=== PATIENT | female | born 1965 | race Two or more races ===

== ENCOUNTER 2018-05-15 17:23 | Emergency (ER) | payer MEDICAID, OTHER ==
[~2018-05-15] VITALS: Ht 162.6 cm; Wt 63.5 kg
[2018-05-15 18:49] LABS: Basophils # (auto) 0 uL; Basophils % (auto) 0.7 % (0.0-2.0); Eosinophils # (auto) 0.2 uL; Eosinophils % (auto) 2.1 % (0.0-7.0); Hematocrit 39.7 % (36.0-46.0); Hemoglobin 13.2 g/dL (12.2-16.2); Lymphocytes # (auto) 1.6 uL; Lymphocytes % (auto) 22.7 % (10.0-50.0); Mean Corpuscular Hemoglobin 29.6 pg (28.0-32.0); Mean Corpuscular Hgb Conc. 33.2 g/dL (32.0-36.0); Mean Corpuscular Volume 89.1 fL (80.0-100.0); Monocytes # (auto) 0.4 uL; Monocytes % (auto) 5.4 % (0.0-12.0); Neutrophils % (auto) 69.1 % (37.0-80.0); Nucleated Red Blood Cells % 0.1 %; Platelet Count (auto) 220 10^3/uL (140-450); Red Blood Cells 4.45 10^6/uL (4.0-5.20); Red Cell Distribution Width 13.1 % (11.8-14.3); White Blood Cell 7.2 10^3/uL (4.4-10.8)
[2018-05-15 19:07] LABS: Albumin 3.4 g/dL (3.4-5.0); Anion Gap 8 (5-15); Blood Urea Nitrogen 9 mg/dL (7-18); Calcium 8.7 mg/dL (8.5-10.1); Carbon Dioxide 26 mmol/L (21-32); Chloride 97 mmol/L (98-107); Potassium 3.7 mmol/L (3.5-5.1); Sodium 131 mmol/L (136-145)
[2018-05-15 19:16] LABS: Alanine Aminotransferase 23 U/L (13-56); Alkaline Phosphatase 217 U/L (45-117); Aspartate Aminotransferase 12 U/L (15-37); BUN/Creatinine Ratio 8.7; Bilirubin, Total 0.3 mg/dL (0.2-1.0); GFR African American 71 mL/min; GFR Non-African American 59 mL/min
[2018-05-15 19:34] LABS: Glucose 539 mg/dL (74-106)
[2018-05-15 20:34] LABS: Urine Bacteria FEW /hpf (None Seen); Urine Blood Negative /uL (Negative); Urine WBC 25 /hpf (0 - 5)
[2018-05-15 20:42] LABS: INR 0.93 (0.9-1.15); Partial Thromboplastin Time 26.6 sec (23.78-33.04)
[2018-05-15 21:38] VITALS: BP 141/65
[2018-05-15] MEDS ORDERED: HYDROcodone-ACET 10/325MG TAB PO ONE (22:00)
[2018-05-15] MEDS ORDERED: InsuLIN REG 1unit/0.01ml Soln (100units/ml) IV ONE (22:00)
[2018-05-15] MEDS ORDERED: SODIUM CHLORIDE 0.9% 1,000 ML IV ONE (22:00)
[2018-05-15] MEDS ORDERED: cefTRIAXone SOD 1,000 MG VL ONE (23:26)
[2018-05-15] MEDS ORDERED: cefTRIAXone 1GM/50ML D5W 50 ML IV ONE (23:30)
== END 2018-05-15 23:30 | disposition home or self-care (01) ==
LOC: ER 17:23
DX: S00.03XA Contusion of scalp, initial encounter (principal); S16.1XXA Strain of muscle, fascia and tendon at neck level, initial encounter; S29.019A Strain of muscle and tendon of unspecified wall of thorax, initial encounter; S20.212A Contusion of left front wall of thorax, initial encounter; E11.65 Type 2 diabetes mellitus with hyperglycemia; I10 Essential (primary) hypertension; I25.2 Old myocardial infarction; V69.49XA Driver of heavy transport vehicle injured in collision with other motor vehicles in traffic accident, initial encounter; Y93.89 Activity, other specified; Y92.410 Unspecified street and highway as the place of occurrence of the external cause; Y99.8 Other external cause status
CPT/HCPCS: 36415; 70450; 71046; 72125; 72128; 80053; 80162; 81001; 82010; 82962; 83735; 83880; 84484; 85025; 85379; 85610; 85730; 93005; 94761; 96374; 96375; 99285; J0696; J1815; J7030

== ENCOUNTER 2022-02-20 14:18 | Inpatient (IN) | payer MEDICAID ==
[~2022-02-20] VITALS: Ht 157.5 cm; Wt 69.9 kg
[2022-02-20] MEDS ORDERED: IPRATROPIUM BROM 0.5 MG/2.5ML INH SOL NEB ONE (14:30)
[2022-02-20] MEDS ORDERED: ALBUTEROL SULF 2.5 MG/0.5ML(0.5%) NEB SOLN NEB ONE ×2 (14:30→16:30)
[2022-02-20 14:59] LABS: Basophils # (auto) 0 10 ^3/uL (0-0.2); Basophils % (auto) 0.5 % (0.0-2.0); Eosinophils # (auto) 0.1 10 ^3/uL (0-0.8); Eosinophils % (auto) 1.3 % (0.0-7.0); Hematocrit 39.4 % (36.0-46.0); Lymphocytes # (auto) 1.3 10 ^3/uL (0.4-5.4); Lymphocytes % (auto) 18.9 % (10.0-50.0); Mean Corpuscular Hemoglobin 30.2 pg (28.0-32.0); Mean Corpuscular Volume 91.4 fL (80.0-100.0); Monocytes # (auto) 0.4 10 ^3/uL (0-1.3); Monocytes % (auto) 5.4 % (0.0-12.0); Neutrophils # (auto) 5.1 10 ^3/uL (1.6-8.6); Neutrophils % (auto) 73.9 % (37.0-80.0); Red Blood Cells 4.31 10^6/uL (4.0-5.20); Red Cell Distribution Width 13.7 % (11.8-14.3); White Blood Cell 6.9 10^3/uL (4.4-10.8)
[2022-02-20 15:26] LABS: Albumin 3.6 g/dL (3.4-5.0); Calcium 9.8 mg/dL (8.5-10.1); Magnesium 2.6 mg/dL (1.6-2.6); Potassium 4.5 mmol/L (3.5-5.1)
[2022-02-20 15:28] LABS: Bilirubin, Total 0.4 mg/dL (0.2-1.0); Total Protein 6.9 g/dL (6.4-8.2)
[2022-02-20 15:46] LABS: INR 0.96 (0.9-1.15); Partial Thromboplastin Time 27.5 sec (24.6-33.4)
[2022-02-20] MEDS ORDERED: MAGNESIUM SULFATE 1GM/100ML 100 ML IV SCH (16:15)
[2022-02-20] MEDS ORDERED: SODIUM CHLORIDE 0.9% 1,000 ML IV ONE (16:15)
[2022-02-20] MEDS: MAGNESIUM SULFATE 1GM/100ML 100 ML IV SCH ×2 (16:55→17:47)
[2022-02-20] MEDS ORDERED: MORPHINE SULFATE INJ 2 MG/ml SYRG IV PRN (17:45)
[2022-02-20] MEDS ORDERED: NITROGLYCERIN 0.4 MG SL TAB SL PRN (17:45)
[2022-02-20] MEDS ORDERED: ASPirin 81 mg TAB PO ONE (18:00)
[2022-02-20] MEDS ORDERED: DEXTROSE (50%) 50ML SYRG IV PRN (18:00)
[2022-02-20] MEDS ORDERED: ATOR-47 PO (18:02)
[2022-02-20] MEDS ORDERED: MET25T PO (18:02)
[2022-02-20] MEDS ORDERED: TICA90TA PO (18:02)
[2022-02-20] MEDS ORDERED: hydrALAZINE HCL 20 MG/ML VL IV PRN (18:15)
[2022-02-20 18:32] LABS: Cholesterol 135 mg/dL (< 200); HDL Cholesterol 54 mg/dL (40-59); LDL Cholesterol 71 mg/dL (< 100); Triglycerides 224 mg/dL (< 150)
[2022-02-20 20:01] LABS: Amphetamine Screen, Urine NEGATIVE (NEGATIVE); Barbiturate Scree,Urine NEGATIVE (NEGATIVE); Benzodiazephine Screen, Urine NEGATIVE (NEGATIVE); Cannabinoid Screen, Urine NEGATIVE (NEGATIVE); Cocaine Screen, Urine NEGATIVE (NEGATIVE); Opiate Scree,Urine NEGATIVE (NEGATIVE); Phencyclidine Screen, Urine NEGATIVE (NEGATIVE)
[2022-02-20] MEDS: METOPROLOL TARTRATE 25 MG TAB PO SCH (22:30)
[2022-02-20] MEDS: ACCU-CHEK COMFORT CURVE STRIP VI SCH (22:30)
[2022-02-20] MEDS: TICAGRELOR 90 MG TAB PO SCH (22:30)
[2022-02-20] MEDS: InsuLIN REG 1unit/0.01ml Soln (100units/ml) SC SCH (22:37)
[2022-02-20] MEDS: INSULIN LANTUS (GLARGINE) 1 /0.01ml (100units/ml) SC SCH (22:38)
[2022-02-21 03:39] VITALS: BP 129/74
[2022-02-21 06:22] LABS: Basophils # (auto) 0 10 ^3/uL (0-0.2); Basophils % (auto) 0.4 % (0.0-2.0); Eosinophils # (auto) 0.2 10 ^3/uL (0-0.8); Eosinophils % (auto) 2.9 % (0.0-7.0); Hematocrit 39.4 % (36.0-46.0); Hemoglobin 13.1 g/dL (12.2-16.2); Lymphocytes # (auto) 1.7 10 ^3/uL (0.4-5.4); Lymphocytes % (auto) 23.9 % (10.0-50.0); Mean Corpuscular Hemoglobin 30.1 pg (28.0-32.0); Mean Corpuscular Hgb Conc. 33.2 g/dL (32.0-36.0); Mean Corpuscular Volume 90.7 fL (80.0-100.0); Monocytes # (auto) 0.5 10 ^3/uL (0-1.3); Monocytes % (auto) 7.4 % (0.0-12.0); Neutrophils # (auto) 4.6 10 ^3/uL (1.6-8.6); Neutrophils % (auto) 65.4 % (37.0-80.0); Nucleated Red Blood Cells % 0.1 %; Red Blood Cells 4.35 10^6/uL (4.0-5.20); Red Cell Distribution Width 13.5 % (11.8-14.3)
[2022-02-21 06:30] LABS: Calcium 9.2 mg/dL (8.5-10.1); Potassium 3.9 mmol/L (3.5-5.1)
[2022-02-21 06:35] LABS: Albumin 3.5 g/dL (3.4-5.0); BUN/Creatinine Ratio 12.1; Bilirubin, Total 0.6 mg/dL (0.2-1.0); Total Protein 6.9 g/dL (6.4-8.2)
[2022-02-21] MEDS: ACCU-CHEK COMFORT CURVE STRIP VI SCH ×4 (07:49→21:34)
[2022-02-21] MEDS: InsuLIN REG 1unit/0.01ml Soln (100units/ml) SC SCH ×4 (07:53→22:40)
[2022-02-21] MEDS: ENOXAPARIN SOD 40 MG/0.4 ML SYRINGE SC SCH (10:00)
[2022-02-21] MEDS: TICAGRELOR 90 MG TAB PO SCH ×2 (10:01→21:33)
[2022-02-21] MEDS: METOPROLOL TARTRATE 25 MG TAB PO SCH ×2 (10:01→21:33)
[2022-02-21 12:14] VITALS: BP 112/58
[2022-02-21] MEDS ORDERED: GABA300C10 PO (12:53)
[2022-02-21] MEDS ORDERED: INSU100I44 SC (12:53)
[2022-02-21] MEDS ORDERED: SACU1TAB PO (12:53)
[2022-02-21] MEDS ORDERED: FUR20T PO (12:53)
[2022-02-21] MEDS ORDERED: PANT40T PO (12:53)
[2022-02-21 13:00] VITALS: BP 115/62
[2022-02-21 17:00] VITALS: BP 130/77
[2022-02-21] MEDS: ALBUTEROL SULF 2.5 MG/0.5ML(0.5%) NEB SOLN NEB PRN (18:53)
[2022-02-21] MEDS: ATORVASTATIN 20 MG TAB PO SCH (21:34)
[2022-02-21 22:00] VITALS: BP 120/53
[2022-02-21] MEDS: INSULIN LANTUS (GLARGINE) 1 /0.01ml (100units/ml) SC SCH (22:41)
[2022-02-22 05:00] VITALS: BP 137/70
[2022-02-22] MEDS: ACCU-CHEK COMFORT CURVE STRIP VI SCH ×4 (05:56→22:20)
[2022-02-22] MEDS: InsuLIN REG 1unit/0.01ml Soln (100units/ml) SC SCH ×4 (06:01→22:51)
[2022-02-22 09:00] VITALS: BP 127/69
[2022-02-22] MEDS: TICAGRELOR 90 MG TAB PO SCH ×2 (09:13→21:27)
[2022-02-22] MEDS: METOPROLOL TARTRATE 25 MG TAB PO SCH ×2 (09:13→22:00)
[2022-02-22] MEDS: ENOXAPARIN SOD 40 MG/0.4 ML SYRINGE SC SCH (09:13)
[2022-02-22] MEDS: ALBUTEROL SULF 2.5 MG/0.5ML(0.5%) NEB SOLN NEB PRN (09:48)
[2022-02-22] MEDS ORDERED: ONDANSETRON HCL 4 MG/2 ML VIAL IV PRN (10:00)
[2022-02-22] MEDS ORDERED: LACTULOSE 20Gm/30ML SOLN PO PRN (10:00)
[2022-02-22 13:00] VITALS: BP 116/66
[2022-02-22] MEDS ORDERED: PANTOPRAZOLE 40 MG TAB PO ONE (15:45)
[2022-02-22 17:00] VITALS: BP 110/65
[2022-02-22] MEDS: GABAPENTIN 300 MG CAP PO SCH (21:27)
[2022-02-22] MEDS: ATORVASTATIN 20 MG TAB PO SCH (21:27)
[2022-02-22] MEDS: SACUBITRIL-VALSARTAN 24mg/26mg TAB PO SCH (21:27)
[2022-02-22 22:00] VITALS: BP 97/52
[2022-02-22] MEDS: INSULIN LANTUS (GLARGINE) 1 /0.01ml (100units/ml) SC SCH (22:51)
[2022-02-23] VITALS (7 sets, daily range): BP systolic 85–111; BP diastolic 54–76
[2022-02-23] MEDS: ACCU-CHEK COMFORT CURVE STRIP VI SCH ×4 (06:34→22:34)
[2022-02-23] MEDS: GABAPENTIN 300 MG CAP PO SCH ×3 (06:34→22:33)
[2022-02-23] MEDS: InsuLIN REG 1unit/0.01ml Soln (100units/ml) SC SCH ×4 (07:05→22:55)
[2022-02-23] MEDS ORDERED: ADENOSINE 59 MG in GIVE UN-DILUTED 0 ML IV STA (07:45)
[2022-02-23] MEDS ORDERED: PANTOPRAZOLE 40 MG TAB PO SCH (10:00)
[2022-02-23] MEDS: SACUBITRIL-VALSARTAN 24mg/26mg TAB PO SCH ×2 (10:01→22:33)
[2022-02-23] MEDS: ENOXAPARIN SOD 40 MG/0.4 ML SYRINGE SC SCH (10:01)
[2022-02-23] MEDS: TICAGRELOR 90 MG TAB PO SCH ×2 (10:02→22:31)
[2022-02-23] MEDS: METOPROLOL TARTRATE 25 MG TAB PO SCH (10:04)
[2022-02-23] MEDS ORDERED: LACTULOSE 20Gm/30ML SOLN PO PRN (10:30)
[2022-02-23] MEDS: CARVEDILOL 3.125 MG TAB PO SCH (22:00)
[2022-02-23] MEDS: DOCUSATE SOD 100 MG CAP PO SCH (22:32)
[2022-02-23] MEDS: ATORVASTATIN 20 MG TAB PO SCH (22:33)
[2022-02-23] MEDS: PANTOPRAZOLE 40 MG TAB PO SCH (22:34)
[2022-02-23] MEDS: INSULIN LANTUS (GLARGINE) 1 /0.01ml (100units/ml) SC SCH (22:55)
[2022-02-24] VITALS (13 sets, daily range): BP systolic 84–114; BP diastolic 33–65
[2022-02-24] MEDS: GABAPENTIN 300 MG CAP PO SCH ×3 (06:00→21:37)
[2022-02-24 06:25] LABS: Basophils # (auto) 0.1 10 ^3/uL (0-0.2); Basophils % (auto) 0.8 % (0.0-2.0); Eosinophils # (auto) 0.3 10 ^3/uL (0-0.8); Eosinophils % (auto) 4.1 % (0.0-7.0); Hematocrit 41.2 % (36.0-46.0); Hemoglobin 13.5 g/dL (12.2-16.2); Lymphocytes # (auto) 2.5 10 ^3/uL (0.4-5.4); Mean Corpuscular Hgb Conc. 32.8 g/dL (32.0-36.0); Mean Corpuscular Volume 91.5 fL (80.0-100.0); Monocytes # (auto) 0.5 10 ^3/uL (0-1.3); Monocytes % (auto) 7.2 % (0.0-12.0); Neutrophils % (auto) 47.9 % (37.0-80.0); Nucleated Red Blood Cells % 0.1 %; White Blood Cell 6.3 10^3/uL (4.4-10.8)
[2022-02-24 06:26] LABS: INR 0.98 (0.9-1.15); Partial Thromboplastin Time 29.6 sec (24.6-33.4)
[2022-02-24 06:35] LABS: BUN/Creatinine Ratio 20.4; Calcium 9.7 mg/dL (8.5-10.1); Potassium 4.2 mmol/L (3.5-5.1)
[2022-02-24] MEDS: ACCU-CHEK COMFORT CURVE STRIP VI SCH ×4 (06:50→21:38)
[2022-02-24] MEDS: InsuLIN REG 1unit/0.01ml Soln (100units/ml) SC SCH ×4 (06:51→22:17)
[2022-02-24] MEDS: SACUBITRIL-VALSARTAN 24mg/26mg TAB PO SCH ×2 (08:44→21:37)
[2022-02-24] MEDS: DOCUSATE SOD 100 MG CAP PO SCH ×2 (08:44→21:36)
[2022-02-24] MEDS: PANTOPRAZOLE 40 MG TAB PO SCH ×2 (08:44→21:37)
[2022-02-24] MEDS: ENOXAPARIN SOD 40 MG/0.4 ML SYRINGE SC SCH (08:45)
[2022-02-24] MEDS: CARVEDILOL 3.125 MG TAB PO SCH ×2 (08:45→21:38)
[2022-02-24] MEDS: TICAGRELOR 90 MG TAB PO SCH ×2 (08:45→21:36)
[2022-02-24] MEDS ORDERED: ANGIOMAX 250 MG VIAL IV ONE (12:24)
[2022-02-24] MEDS ORDERED: fentaNYL CITRATE 100 MCG/2 ML VL ONE (12:25)
[2022-02-24] MEDS ORDERED: VERAPAMIL 2.5MG/ML INJ 2ML VIAL IV ONE (12:25)
[2022-02-24] MEDS ORDERED: MIDAZOLAM HCL 2MG/2ML 2ml VIAL (1mg/ml) ONE (12:25)
[2022-02-24] MEDS ORDERED: HEPARIN SODIUM (PORCINE) 5000 UNITS/ML 1ML VIAL ONE (12:25)
[2022-02-24] MEDS ORDERED: SODIUM CHL 0.9% 0 ML ONE (12:26)
[2022-02-24] MEDS ORDERED: diphenhdrAMINE HCL 50 MG/1 ML VL ONE (12:27)
[2022-02-24] MEDS ORDERED: IODIXANOL 320MG/ML 100ML BTL IV ONE (12:29)
[2022-02-24] MEDS ORDERED: SODIUM CHLORIDE 0.9% 500 ML IV ONE (15:15)
[2022-02-24] MEDS: ATORVASTATIN 20 MG TAB PO SCH (21:37)
[2022-02-24] MEDS: INSULIN LANTUS (GLARGINE) 1 /0.01ml (100units/ml) SC SCH (22:18)
[2022-02-25 04:30] VITALS: BP 109/60
[2022-02-25] MEDS: ACCU-CHEK COMFORT CURVE STRIP VI SCH (06:32)
[2022-02-25] MEDS: GABAPENTIN 300 MG CAP PO SCH (06:32)
[2022-02-25] MEDS: InsuLIN REG 1unit/0.01ml Soln (100units/ml) SC SCH (06:53)
[2022-02-25 08:30] VITALS: BP 96/61
[2022-02-25 08:40] VITALS: BP 96/61
[2022-02-25 09:23] VITALS: BP 96/61
[2022-02-25] MEDS: ENOXAPARIN SOD 40 MG/0.4 ML SYRINGE SC SCH (09:28)
[2022-02-25] MEDS: TICAGRELOR 90 MG TAB PO SCH (09:28)
[2022-02-25] MEDS: PANTOPRAZOLE 40 MG TAB PO SCH (09:29)
[2022-02-25] MEDS: SACUBITRIL-VALSARTAN 24mg/26mg TAB PO SCH (09:29)
[2022-02-25] MEDS: DOCUSATE SOD 100 MG CAP PO SCH (09:29)
[2022-02-25] MEDS: CARVEDILOL 3.125 MG TAB PO SCH (09:30)
[2022-02-25 11:59] LABS: Hepatitis A Ab IgM Negative; Hepatitis B Core IgM Negative; Hepatitis C Antibody Negative (Negative)
== END 2022-02-25 10:45 | disposition home or self-care (01) | DRG 191 ==
LOC: ER 14:18 → EDBD 14:18 → TELE 17:40 → TELE-EAST 02-21 11:48
PROVIDERS: ADMIT Registered Nurse; ATTEND Internal Medicine
PROC: 4A023N7 Measurement of Cardiac Sampling and Pressure, Left Heart, Percutaneous Approach (ICD-10-PCS; principal; 2022-02-24)
PROC: B211YZZ Fluoroscopy of Multiple Coronary Arteries using Other Contrast (ICD-10-PCS; 2022-02-24)
PROC: B215YZZ Fluoroscopy of Left Heart using Other Contrast (ICD-10-PCS; 2022-02-24)
DX: I25.10 Atherosclerotic heart disease of native coronary artery without angina pectoris (principal); I50.21 Acute systolic (congestive) heart failure; I42.9 Cardiomyopathy, unspecified; I24.9 Acute ischemic heart disease, unspecified; E11.22 Type 2 diabetes mellitus with diabetic chronic kidney disease; E11.42 Type 2 diabetes mellitus with diabetic polyneuropathy; Z20.822 Contact with and (suspected) exposure to COVID-19; I13.0 Hypertensive heart and chronic kidney disease with heart failure and stage 1 through stage 4 chronic kidney disease, or unspecified chronic kidney disease; E78.5 Hyperlipidemia, unspecified; N18.31 Chronic kidney disease, stage 3a; Z79.4 Long term (current) use of insulin; Z87.11 Personal history of peptic ulcer disease; Z98.61 Coronary angioplasty status; I25.2 Old myocardial infarction
CPT/HCPCS: 36415; 71045; 78452; 80048; 80053; 80061; 80074; 80307; 82962; 83036; 83735; 83880; 84443; 84484; 85025; 85379; 85610; 85730; 86850; 86900; 86901; 93005; 93017; 93306; 94640; 96361; 96365; 99152; 99291; G0378; J0153; J1815; J2250; J2405; Q9967